=== PATIENT | male | born 1950 | race Caucasian/White ===

== ENCOUNTER 2016-05-24 12:01 | Emergency (ER) | payer OTHER ==
[~2016-05-24] VITALS: Ht 177.8 cm; Wt 140.6 kg
[~2016-05-24 12:01] MED LIST: ACTOS45 MG PO; BENICAR HCT 401 EAC1 PO; CLEOCIN300 MG PO; DOCUSATE SODIU100 MG PO; FLOVENT 11120 INHALA IH; GLUCOPHAGE1000 MG PO; HEPARIN SO5000 UNITS SC; HYDROCHLOROTHIA25 MG PO; MAXIPIME2 GM IV; METRONIDAZOLE500 MG PO; NOVOLIN,HU100 UNITS/ SC; TRAMADOL HCL50 MG PO; TRAZODONE HCL50 MG PO
[2016-05-24 12:26] LABS: POINT-OF-CARE METER ID UU13113778
[2016-05-24 13:38] LABS: ADD MIUA? YES; BILIRUBIN NEGATIVE; BLOOD TRACE; COLOR YELLOW ((YELLOW)); GLUCOSE (STRIP) >=1000; KETONES NEGATIVE; LEUKOCYTES SMALL; NITRITE NEGATIVE; PH, URINE 5.5 (5-8); PROTEIN (STRIP) 100; SPECIFIC GRAVITY 1.023 (1.000-1.030); UROBILINOGEN 0.2 MG/DL (0.2-1.0)
[2016-05-24 13:54] LABS: BACTERIA NONE SEEN; CASTS NONE SEEN /LPF; CRYSTALS NONE SEEN; EPITHELIAL CELLS RARE; MUCUS NONE SEEN; PATHOLOGICAL CAST NONE SEEN; RED BLOOD CELLS 0-5 /HPF (0-5); SMALL ROUND CELL NONE SEEN; UCUL ADDED? NO; YEAST-LIKE CELL NONE SEEN
[2016-05-24 16:59] LABS: EOSINOPHIL COUNT 0.2 K/uL (0-0.3); HEMATOCRIT 42.7 % (38.0-50.0); IMMATURE GRANULOCYTE (%) 0.3 % (0.0-0.7); IMMATURE GRANULOCYTE COUNT 0.2 K/uL; LYMPHOCYTE COUNT 1.8 K/uL (1.0-2.8); MCHC 35.6 G/DL (30.0-36.0); MCV 81.3 FL (86-99); MONOCYTE (%) 7.9 % (3-12); MONOCYTE COUNT 0.6 K/uL (0-0.8); NEUTROPHIL (%) 65.7 % (45-76); NEUTROPHIL COUNT 5.2 K/uL (1.8-6.4); PLATELET COUNT 209 K/uL (156-360); RBC DIS.WIDTH-CV 13.4 % (11.8-14.6); RBC DIS.WIDTH-SD 38.7 % (39-53); RED BLOOD COUNT 5.25 M/uL (4.00-5.50)
[2016-05-24 17:14] LABS: CHLORIDE 98 mEq/L (99-109); POTASSIUM 4.3 mEq/L (3.7-5.4); SODIUM 132 mEq/L (136-147)
[2016-05-24 17:16] LABS: GLUCOSE 241 mg/dL (70-99)
[2016-05-24 17:18] LABS: ANION GAP 13 MEQ/L (2-14); TOTAL BILIRUBIN 0.5 mg/dL (0.0-1.0)
[2016-05-24 17:20] LABS: ALKALINE PHOSPHATASE 68 IU/L (3-129); GFR ESTIMATE (CALCULATED) 58 mL/min/
[2016-05-24 17:21] LABS: UREA NITROGEN (BUN) 17 mg/dL (9-23)
[2016-05-24] MEDS ORDERED: CLINDAMYCIN HC300 MG PO (18:23)
[2016-05-24 18:46] VITALS: BP 146/62
== END 2016-05-24 18:53 | disposition home or self-care (01) ==
LOC: EME 12:01
PROVIDERS: Physician Assistant
DX: R60.0 Localized edema (principal); I73.9 Peripheral vascular disease, unspecified; E11.9 Type 2 diabetes mellitus without complications; I10 Essential (primary) hypertension; Z89.421 Acquired absence of other right toe(s); Z89.422 Acquired absence of other left toe(s); Z88.6 Allergy status to analgesic agent; Z86.73 Personal history of transient ischemic attack (TIA), and cerebral infarction without residual deficits
CPT/HCPCS: 73630; 80053; 81003; 82948; 83605; 85025; 87040; 93971; 99281; 99285

== ENCOUNTER → 2017-03-04 | Day surgery (SDC) | payer OTHER ==
[~2017-03-04] MED LIST changes: +CLINDAMYCIN HC300 MG PO
== END | disposition home or self-care (01) ==
LOC: SDC 04:43
DX: H43.11 Vitreous hemorrhage, right eye (principal); Z53.29 Procedure and treatment not carried out because of patient's decision for other reasons

== ENCOUNTER 2017-10-18 11:43 | Inpatient (IN) | payer OTHER ==
[~2017-10-18] VITALS: Ht 177.8 cm; Wt 134.7 kg
[~2017-10-18 11:43] MED LIST changes: +VALIUM5 MG PO
[2017-10-18 14:45] LABS: BASOPHIL (%) 0.4 % (0-1); BASOPHIL COUNT 0.1 K/uL (0-0.1); EOSINOPHIL (%) 1.2 % (0-5); EOSINOPHIL COUNT 0.2 K/uL (0-0.3); HEMATOCRIT 41.6 % (38.0-50.0); HEMOGLOBIN 14.4 G/DL (12.5-16.6); IMMATURE GRANULOCYTE (%) 0.5 % (0.0-0.7); LYMPHOCYTE (%) 11.1 % (15-42); LYMPHOCYTE COUNT 1.4 K/uL (1.0-2.8); MCH 28.7 PG (29.0-34.0); MCHC 34.6 G/DL (30.0-36.0); MONOCYTE (%) 7.7 % (3-12); MONOCYTE COUNT 0.9 K/uL (0-0.8); NEUTROPHIL (%) 79.1 % (45-76); NEUTROPHIL COUNT 9.7 K/uL (1.8-6.4); PLATELET COUNT 256 K/uL (156-360); RBC DIS.WIDTH-SD 39.4 % (39-53); RED BLOOD COUNT 5.01 M/uL (4.00-5.50); WHITE BLOOD COUNT 12.3 K/uL (4.1-10.2)
[2017-10-18 14:55] LABS: CHLORIDE 95 mEq/L (99-109); POTASSIUM 4.3 mEq/L (3.7-5.4); SODIUM 130 mEq/L (136-147)
[2017-10-18 15:00] LABS: GLUCOSE 414 mg/dL (70-99)
[2017-10-18 15:01] LABS: GFR ESTIMATE (CALCULATED) 35 mL/min/ (58.99-99999); UREA NITROGEN (BUN) 40 mg/dL (9-23)
[2017-10-18 15:37] LABS: CARBON DIOXIDE (BICARBONATE) 30.8 MEQ/L (20-31)
[2017-10-18 20:45] VITALS: BP 167/74
[2017-10-19 10:22] LABS: HEMOGLOBIN A1c (GLYCOHEMOGLOB) 11.5 % (Below 5.7)
== END 2017-10-18 21:00 | disposition left against medical advice (07) | DRG 540 ==
LOC: EME 11:43 → EDOF 16:20 → ENRESERV 16:22 → EDOF 21:00
PROVIDERS: Physician Assistant Medical
DX: M86.172 Other acute osteomyelitis, left ankle and foot (principal); N17.9 Acute kidney failure, unspecified; E87.1 Hypo-osmolality and hyponatremia; Z68.41 Body mass index [BMI] 40.0-44.9, adult; E11.69 Type 2 diabetes mellitus with other specified complication; Z91.19 Patient's noncompliance with other medical treatment and regimen; E11.621 Type 2 diabetes mellitus with foot ulcer; E11.65 Type 2 diabetes mellitus with hyperglycemia; I10 Essential (primary) hypertension; L97.519 Non-pressure chronic ulcer of other part of right foot with unspecified severity; L97.529 Non-pressure chronic ulcer of other part of left foot with unspecified severity; M60.9 Myositis, unspecified; F41.9 Anxiety disorder, unspecified; M19.90 Unspecified osteoarthritis, unspecified site; E66.01 Morbid (severe) obesity due to excess calories; Z79.4 Long term (current) use of insulin; Z80.3 Family history of malignant neoplasm of breast; Z83.3 Family history of diabetes mellitus; Z88.5 Allergy status to narcotic agent; Z89.422 Acquired absence of other left toe(s); Z89.421 Acquired absence of other right toe(s)
CPT/HCPCS: 73630; 73720; 80048; 81003; 82010; 82803; 83036; 83605; 85025; 87040; 87070; 87075; 87205; 87641; 93925; 99281; 99285; J7030